=== PATIENT | male | born 1965 | race Caucasian/White ===

== ENCOUNTER → 2020-11-09 | Outpatient (CLI) | payer OTHER ==
[~2020-11-09] MED LIST: PROTONIX 20 MG20 M1 PO; TAMIFLU75 MG PO; VALIUM5 MG PO; ZOFRAN ODT4 MG PO
== END ==
LOC: M.CT 11-05 14:47 → M.ULTRA 12:34
PROVIDERS: ATTEND Family Medicine
DX: I65.23 Occlusion and stenosis of bilateral carotid arteries (principal)

== ENCOUNTER → 2020-11-09 | Outpatient (CLI) | payer OTHER | LOC: M.CT 12:28 | PROVIDERS: ATTEND Family Medicine | DX: Z13.6 Encounter for screening for cardiovascular disorders (principal); I25.10 Atherosclerotic heart disease of native coronary artery without angina pectoris ==

== ENCOUNTER → 2020-11-12 | Outpatient (CLI) | payer OTHER ==
--- NOTE | 2020-11-12 18:24 | CARDNUC ---
[place] [address] CARDIAC NUCLEAR IMAGING REPORT Name: CAT DAVIS Room: [facility]#: [id number] Admission: 11/12/20 Attend Phys: Rayray Nath, Discharge: Date of : 65 Date of Service: 11/12/20 1824 Report #: [id number] THIS REPORT FOR: cc: Osmel Bravo,Osmel Dhaliwal,Rayray Toledo MD [facility] ~ APPROVED REPORT Imaging Protocol: Rest Tc-99m/Stress Tc-99m 1 day Study performed: 11/12/2020 07:45:00 Indication: Chest pain Stress Tech: JERE BUSBY Stress Nurse: Roxane Granger RN NM Tech:SANKET Farrell Ht: 5 ft 9 in Wt: 211 lbs BSA: 2.11 m2 HR: 71 bpm BP: 139/80 mmHg BMI: 31.15 Rhythm: NSR Medical History Medical History: Diabetes Medications: Rosuvastatin Allergies: No known drug allergies Cardiac Risk Factors: Age, Hyperlipidemia, DM, Tobacco History (Former) Resting Data Rest SPECT myocardial perfusion imaging was performed in supine position 30 minutes following the intravenous injection of 9.8 mCi of Tc-99m Sestamibi. Time of rest injection: 804 Date: 11/12/2020 The images were gated to evaluate regional wall motion and calculate left ventricular ejection fraction. Administration Route: IV Exercise Stress At peak stress, the patient was injected intravenously with 34.7mCi of Tc-99m Sestamibi. Time of stress injection: 949 Date: 11/12/2020 Administration Route: IV Gated Stress SPECT was performed 30 [place] [address] CARDIAC NUCLEAR IMAGING REPORT Name: CAT DAVIS Room: [facility]#: [id number] Admission: 11/12/20 Attend Phys: Rayray Nath, Discharge: Date of : 65 Date of Service: 11/12/20 1824 Report #: [id number] The images were gated to evaluate regional wall motion and calculate left ventricular ejection fraction. Prone imaging was performed. Stress Test Details Stress Test: Exercise stress testing was performed using a Iggy protocol. HR Max Heart Rate (APMHR): 165 bpm Resting HR: 71 bpm Target HR (85% APMHR): 140 bpm % of APMHR: 99 HR response to stress: Normal HR response to stress BP Resting BP: 139/80 mmHg Max BP: 182/92 mmHg Recovery BP: 145/76 mmHg BP response to stress: Normal blood pressure response to stress. ECG Resting ECG: Sinus Rhythm Stress ECG: Sinus Tachycardia ST Change: None Arrhythmia: None Recovery ECG: Sinus Rhythm Recovery ST Change: None Recovery Arrhythmia: None Clinical Reason for Termination: Dyspnea, Fatigue Stress Symptoms: None Exercise duration: 7 min 59 sec The patient exhibited fair exercise tolerance. There were no cardiac symptoms with standard Iggy protocol exercise. Stress ECG Conclusion The baseline twelve-lead EKG shows sinus rhythm without significant ST segment or T wave abnormality. EKGs obtained during and post exercise show sinus rhythm and sinus tachycardia with no significant ST segment changes when compared to baseline. There were no stress-induced arrhythmias. Study Quality Study: Fair Artifact: [place] [address] CARDIAC NUCLEAR IMAGING REPORT Name: CAT DAVIS Room: [facility]#: [id number] Admission: 11/12/20 Attend Phys: Rayray Nath, Discharge: Date of : 65 Date of Service: 11/12/20 1824 Report #: [id number] Study Data At rest, the left ventricular ejection fraction was 74%.. Post stress, the left ventricular ejection was 64%.. TID = 0.89. Perfusion Perfusion images obtained in the supine position at rest and post exercise stress show photopenia in the inferior wall that resolves with post-rest prone imaging suggesting diaphragmatic attenuation artifact. No other significant fixed or reversible defects are identified. Wall Motion Gated images were technically inadequate for wall motion evaluation. Raw data suggests normal left ventricular systolic function. Nuclear Conclusion ECG Findings: negative for ischemia Clinical Findings: negative for ischemia Nuclear Findings: negative for ischemia Exercise Capacity: Fair Risk Study: low Perfusion images show no defect to suggest infarct or ischemia. Gated images are not technically adequate for evaluation of left ventricular systolic function or wall motion. Recommend echocardiographic follow-up. This is not a high risk study. <Conclusion> The baseline twelve-lead EKG shows sinus rhythm without significant ST segment or T wave abnormality. EKGs obtained during and post exercise show sinus rhythm and sinus tachycardia with no significant ST segment changes when compared to baseline. There were no stress-induced arrhythmias. <ELECTRONICALLY SIGNED> By: Rayray Nath MD, FACC 11/12/201823 23 23 Rayray Nath MD, FACC /INF
== END ==
LOC: M.NUC 07:45
PROVIDERS: ATTEND Internal Medicine Cardiovascular Disease
DX: R79.82 Elevated C-reactive protein (CRP) (principal); E78.00 Pure hypercholesterolemia, unspecified; E11.9 Type 2 diabetes mellitus without complications